=== PATIENT | female | born 1935 | race African-American/Black ===

== ENCOUNTER 2017-02-28 13:39 | Emergency (ER) | payer OTHER ==
[~2017-02-28] VITALS: Ht 152.4 cm; Wt 49.9 kg
[~2017-02-28 13:39] MED LIST: ACCUNEB0.63 MG/3; ALBUTEROL2.5 MG/0.1 INH; ALBUTEROL2.5 MG/31 INH; AMLODIPINE BESIL1 GM MC; AMLODIPINE BESY10 MG PO; ARANESP60 MCG/0.3 IJ; ASPIRIN EC81 M1 PO; ASPIRIN325; ASPIRIN325 PO; AUGMENTIN 500-1 EACH PO; AVELOX 400 MG400 MG PO; B COMPLEX-VITA1 EACH; BENAZEPRIL HCL10 MG PO; BENAZEPRIL HCL5 MG PO; BISACODYL SUPP10 MG RECTAL; CALCITRIOL0.5 MCG PO; CARVEDILOL12.5 MG PO; CARVEDILOL3.125 MG PO; CARVEDILOL6.25 MG PO; DILANTIN100 MG PO; ELOCON30 ML TP; EMLA; EPOGEN2000 UNIT/ INJECTION; FAMOTIDINE20 MG PO; FERRO-TIME325 MG PO; FUROSEMIDE 40 M40 M1 PO; HECTOROL2 MCG/1 ML IV; HYDRALAZINE 2525 MG PO; HYDRALAZINE 5050 M1 PO; IMDUR 30 MG TAB30 M1 PO; IMDUR 30 MG TAB30 MG PO; LABETALOL 100100 MG PO; LIQUITUSS200 MG/5 M PO; LORTAB 5 MG/5001 TA1 PO; LOTREL 10-20 M1 EACH PO; LOVASTAT20 PO; MACROBID 100 M100 M1 PO; NASONEX17 GM NASAL; NEPHRO-VITE RX1 TA1 PO; NEPHROCAPS SOFT1 CAP PO; NEXIUM 40 MG CA40 M1 PO; NEXIUM40 MG PO; NORVASC 2.5 MG2.5 M1 PO; NORVASC 2.5 MG2.5 MG PO; NORVASC 5 MG TAB5 MG PO; OMEPRAZOLE40 MG PO; PROAIR HFA8.5 GM INH; RENVELA800 MG PO; SENSIPAR 30 MG30 MG PO; TORSEMIDE20 MG PO; XALATAN2.5 ML OPHTHALMIC; ZEMPLAR2 MCG PO; ZOFRAN ODT4 MG PO
[2017-02-28 15:37] LABS: HEMATOCRIT 45.6 % (37.0-47.0); HEMOGLOBIN 15.1 gm/dL (12.0-15.0); MCH 34.1 pg (26.0-34.0); MCHC 33.2 g/dL (28.0-37.0); MCV 102.7 fL (80.0-100.0); RBC 4.45 mil/uL (4.20-5.00); RDW 15.4 % (10.5-14.5); WBC 13.6 thou/uL (4.0-11.0)
[2017-02-28 15:38] LABS: MANUAL DIFF YES
[2017-02-28 15:46] LABS: CALCIUM 9.2 mg/dL (8.5-10.1); CREATININE 7.4 mg/dL (0.6-1.0); POTASSIUM 5.7 mmol/L (3.5-5.1)
[2017-02-28 15:52] LABS: ABSOLUTE NEUTROPHILS 12.1 thou/uL (1.4-8.2); ALBUMIN 3.4 g/dL (3.4-5.0); ANISOCYTOSIS 2+; DIRECT BILIRUBIN 0.1 mg/dL (<0.1-0.3); MACROCYTES 1+; TOTAL BILIRUBIN 0.6 mg/dL (<0.1-1.0); TOTAL CELL COUNT 100; TOTAL PROTEIN 8.8 g/dL (6.4-8.2)
[2017-02-28 15:53] LABS: LARGE PLATELETS RARE; POLYCHROMASIA OCCASIONAL
[2017-02-28 15:59] LABS: PLATELET COUNT 220 thou/uL (150-400)
[2017-02-28] MEDS ORDERED: ZOFRAN ODT4 MG PO (17:19)
[2017-02-28] MEDS ORDERED: PHENERGAN 25 MG25 M1 PO (17:19)
[2017-02-28 17:22] LABS: APTT 30.8 Seconds (24.5-32.8); INR 1.2; PROTIME 11.8 Seconds (9.3-11.4)
== END 2017-02-28 18:00 | disposition home or self-care (01) ==
LOC: ER 13:39
PROVIDERS: Emergency Medicine; Physician Assistant
DX: R10.13 Epigastric pain (principal); D72.829 Elevated white blood cell count, unspecified; R11.2 Nausea with vomiting, unspecified; I11.0 Hypertensive heart disease with heart failure; I50.9 Heart failure, unspecified; E11.9 Type 2 diabetes mellitus without complications; G47.30 Sleep apnea, unspecified; Z86.73 Personal history of transient ischemic attack (TIA), and cerebral infarction without residual deficits; Z88.8 Allergy status to other drugs, medicaments and biological substances

== ENCOUNTER 2017-03-02 08:01 | Inpatient (IN) | payer OTHER ==
[~2017-03-02] VITALS: Ht 160 cm; Wt 50.8 kg
[2017-03-02] VITALS (38 sets, daily range): BP systolic 87–151; BP diastolic 45–119
--- NOTE | ~2017-03-02 | HC ---
[facility] [place] [address] CONSULTATION Name: ANNALISA COTTO Room #: 201-P ADM IN M.R.#: [id number] Admission: 03/02/17 Attend Phys: Perry Zavala DO Discharge: Date of : 34 Report #: [id number] THIS REPORT FOR: //name// CC: SOHAM physician/PCP Perry Zavala DATE OF SERVICE: 03/03/2017 HISTORY OF PRESENT ILLNESS: The patient is an 81-year-old -Dutch female who was admitted with left-sided weakness and speech difficulties. She was noted to have acute mental status changes. She was outside the timeframe for TPA. 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 Question of a late effect CVA. She was also diagnosed for a non-ST elevation NV. Recommendations are for medical management as per Cardiology. She has had a functional decline from her premorbid status with left-sided weakness and decreased functional abilities. We are seeing her in rehabilitation medicine consultation. PAST MEDICAL HISTORY: Includes end-stage renal disease, on hemodialysis. She had a prior right frontal infarct and has had a history of a seizure back in 2012. History of CHF, diabetes mellitus and obstructive sleep apnea. ALLERGIES: SOAP, IODINE AND ATENOLOL. SOCIAL HISTORY: House, 2 steps in, lives with her son, he works. She used a walker and was able to get around the house without difficulty. She could dress herself and take care of basic toileting. Her daughters helped her with labs. MEDICATIONS: Please see the full medication listing. HABITS: No history of alcohol or tobacco abuse. FAMILY HISTORY: Noncontributory. REVIEW OF SYSTEMS: Did not offer any current complaints of chest pain, shortness of breath or abdominal discomfort. She notes that she has right eye droop or ptosis from . Her prior CVA was back in 2011. No focal extremity pain complaints. PHYSICAL EXAMINATION: GENERAL: An 81-year-old -Dutch female in no obvious distress. She is seen in the intensive care unit. She is of small stature and is thin. VITAL SIGNS: Last recorded temperature is 37, pulse 85, respirations 15 and blood pressure 113/57. HEENT: She is alert. She does have the right eye ptosis. Nasal prong O2 at 2 liters. EOMs appeared to be full. No obvious visual field neglect to confrontation. She is noted to be right handed. Facies are symmetric. She can [facility] [address] [place] [address] CONSULTATION Name: ANNALISA COTTO Room #: 201-P [facility] IN .R.#: [id number] Admission: 03/02/17 Attend Phys: Perry Zavala DO Discharge: Date of : 34 Report #: [id number] express herself reasonably well. EXTREMITIES: She has functional range of motion of the right upper extremity with strength grade 4-/5. Left upper extremity strength is a grade 3+/5. Left lower extremity strength is a grade 3+/5. Right lower extremity strength is more of a grade 4-/5. She appeared inconsistent as far as testing simultaneous stimulation. DTRs were decreased in the left upper and left lower extremity and there was no clonus at either foot. She was supine to sit with contact guard assistance. She was able to take 4 steps contact guard handheld assistance. ASSESSMENT: An 81-year-old right-handed -Dutch female admitted with the following problem list: 1. Left hemiparesis. 2. Speech difficulties, which have improved. 3. Question late effect cerebrovascular accident. 4. Acute non-ST elevation myocardial infarction, being medically managed. 5. Acute mental status change, which appears to be improving. 6. Prior history of a right frontal pontine stroke. 7. End-stage renal disease, on hemodialysis. 8. History of congestive heart failure. 9. Diabetes mellitus. 10. Obstructive sleep apnea. PLAN: Therapies are working with her on functional mobility and on ADLs. She really did quite well for herself premorbidly. She certainly may warrant a short acute in-hospital inpatient rehabilitation stay as she further medically stabilizes and moves out of the ICU. We will be glad to follow along with you regarding her rehab therapy needs. By: 1214 [id number] Alberto Cutler MD /
--- NOTE | ~2017-03-02 | EKG ---
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 DOWNS : 1935 Requested By: Lissa Evans Order Number: [id number] MD: Rios Reyes Measurements Intervals [place] Rate: 83 P: 52 CT: 218 QRS: -8 QRSD: 108 T: 197 QT: 418 QTc: 492 Interpretive Statements Sinus rhythm Borderline prolonged CT interval Inferior infarct, age indeterminate Probable anterolateral infarct, acute Compared to ECG 03/02/2017 08:22:50 No significant changes Electronically Signed On 03-03-2017 7:51:49 CDT by Rios Reyes [email or web address] <ELECTRONICALLY SIGNED> By: Rios Reyes MD, FAC 03/03/17 0751 1002 1002 Rios Reyes MD, [facility] /EPI
--- NOTE | ~2017-03-02 | CATHLAB ---
[place] [address] [place] [address] INVASIVE PROCEDURE REPORT Name: ANNALISA COTTO Room #: 201-P ADM IN .R.#: [id number] Admission: 03/02/17 Attend Phys: Perry Zavala, Discharge: Date of : 34 Date of Service: 03/04/17 1337 Report #: [id number] THIS REPORT FOR: //name// APPROVED REPORT Patient Details Patient Status: ED Room #: The patient is a 81 year-old female Event Personnel Riaz Patel Correspondence Analyst, Gordon Gold RN, Chelo Rodriguez RN RN, Magi Perry Sandifer, David Monitor Procedures Performed Coronary Angiography Only [id number] CORANG Indication STEMI (>48 hrs to = 72 hrs), Chest pain Risk Factors Dysplipidemia , Cerebrovascular Disease, HypertensionRenal Failure, Dialysis Procedure Narrative The Right Groin^ was infiltrated with 1% Lidocaine subcutaneous anesthesia. A PINNACLE 6FR Sheath #[id number] sheath was inserted into the RFA^. Coronary angiography was performed using coronary diagnostic catheters. The right coronary system was accessed and visualized with a JR4 catheter. The left coronary system was accessed and visualized with a JL4 catheter. Closure device was deployed with a 6 Fr MYNXGRIP 6/7F #[id number]. The patient tolerated the procedure well and there were no complications associated with the procedure. There was no hematoma. Intraoperative Conscious Sedation Sedation start time: 12:20 Case end Time: 12:45 Fluoro Time: 8.00 minutes Dose: 706 mGy Contrast Type and Amount: Omnipaque 125 ml Diagnostic Cath Left Main Normal origin bifurcates left anterior descending left [facility] [place] [address] INVASIVE PROCEDURE REPORT Name: KIRTIANNALISA ERICA Room #: 201-P [facility] IN ..#: [id number] Admission: 03/02/17 Attend Phys: Perry Zavala, Discharge: Date of : 34 Date of Service: 03/04/17 1337 Report #: [id number] circumflex free of high-grade disease. There is some coronary calcifications noted. LAD Moderate caliber vessel which immediately bifurcates into a large diagonal and LAD. This juncture the LAD proper is completely occluded not filling via had a role or homocollaterals. There is no late filling identified. There is calcifications and possible thrombus noted at the origin of the LAD at the site of the first diagonal branch. The distal LAD is seen via collaterals and the apex is a small string. Circumflex Large-caliber vessel which gives rise to relatively small marginal branch free of high-grade disease. In courses in the anterior interventricular sulcus skin was a second moderate caliber marginal branch which has approximately 50% stenosis at its origin and is quite tortuous in its course. The circumflex continues on posteriorly where there is less than 50% irregularities noted giving rise to posterior wall marginal branch. His posterior wall marginal branch has very brisk and mature collaterals extending to the distal right coronary vessel and filling briskly the posterior descending artery and posterolateral wall branches. Right Coronary Small-caliber vessel which appears to be chronically occluded proximally. The distal RCA fills via collaterals from the left circumflex as stated above Hemodynamics The aortic pressure is 145/61 mmHg with a mean of 94 mmHg. PCI Technique Lesion A JL4 Guide Catheter was used to engage the LCA ostium. A Luge Wire (J) .014 X 182CM #[id number] Interventional Guidewire was used to cross the lesion. Conclusion 1. Coronary disease severe, two-vessel involving the proximal RCA which is well collateralized and mid LAD which appears to be not collateralized and totally occluded 2. Abnormal hemodynamics Recommendations Aggressive Medical Therapy In view of echocardiographic data and the presence of cardiomyopathy [address] [address] INVASIVE PROCEDURE REPORT Name: ANNALISA COTTO ERICA Room #: 201-P [facility] IN ..#: [id number] Admission: 03/02/17 Attend Phys: Perry Zavala, Discharge: Date of : 34 Date of Service: 03/04/17 1337 Report #: [id number] patient will be initiated on ischemic cardiomyopathic guidelines directed medical therapy as tolerated. <ELECTRONICALLY SIGNED> By: Riaz Patel MD 03/04/17 1337 1337 133 Riaz Patel MD /INF
--- NOTE | ~2017-03-02 | EKG ---
[address] [address] ELECTROCARDIOGRAM REPORT Name: ANNALISA COTTO Room #: 201-P ADM IN M.R.#: [id number] Admission: 03/02/17 Attend Phys: Perry Zavala DO Discharge: Date of : 34 Report #: [id number] THIS REPORT FOR: //name// [facility] Test Date: 2017-03-04 Test Time: 15:01:55 Pat Name: ANNALISA COTTO Department: Room: 201 P Gender: F Tdp Displays Analyst: MARIAN : 1935 Requested By: Perry Zavala Order Number: [id number] MD: Rios Reyes Measurements Intervals [place] Rate: 77 P: 30 MO: 207 QRS: 61 QRSD: 119 T: 216 QT: 438 QTc: 496 Interpretive Statements Sinus rhythm Probable inferior infarct, age indeterminate Anterolateral infarct, acute (LAD) Compared to ECG 03/02/2017 10:02:30 No significant changes Electronically Signed On 03-08-2017 9:10:26 CDT by Rios Reyes [email or web address] <ELECTRONICALLY SIGNED> By: Rios Reyes MD, [facility] 03/08/17 0910 1501 1501 Rios Reyes MD, [facility] /EPI
--- NOTE | ~2017-03-02 | HC ---
[facility] [place] [address] CONSULTATION Name: ANNALISA COTTO Room #: 201-P [facility] IN M.R.#: [id number] Admission: 03/02/17 Attend Phys: Perry Zavala DO Discharge: 03/08/17 Date of : 34 Report #: [id number] THIS REPORT FOR: //name// CC: SOHAM physician/PCP Perry Zavala NEPHROLOGY CONSULTATION CHIEF COMPLAINT: An 81-year-old patient well known to us, chronic dialysis patient, is admitted to the ICU after cardiac catheterization with acute NV, LAD occlusion status post unsuccessful angioplasty. HISTORY OF PRESENT ILLNESS: The patient is well known to us, longstanding diabetes and hypertension, longstanding end-stage renal disease and seizure disorder. She became ill 2 days ago, came to the emergency room with severe abdominal pain, nausea and vomiting, who was evaluated and sent home. Missed dialysis, yesterday became increasingly confused, came to the emergency room today, had a very high troponin, was felt to have an acute NV, was taken to the geotechnical laboratory technician and apparently had an LAD, which was unable to be opened up. Bedside echo showed severe apical septal inferior anterior wall hypokinesis with an LVEF of 30 to 35%, aortic regurgitation and pulmonary hypertension. PAST MEDICAL HISTORY: She has had previous CVA with left hemiparesis, which is chronic. She has end-stage renal disease, dialyses Tuesday, , and Saturdays; history of diastolic heart failure; severe hypertension and glucose intolerance. HOME MEDICATIONS: Listed as carvedilol 6.25 mg b.i.d., lovastatin 20 mg daily, Renvela 2 with meals t.i.d., aspirin 325 mg daily, Imdur 30 mg daily. FAMILY HISTORY: Noncontributory. SOCIAL HISTORY: No substantial cigarettes or alcohol. REVIEW OF SYSTEMS: GENERAL: The patient is seen in ICU, feeling a little better than she did before, currently not having any chest pain. EYES: Vision is fair at best. ENT: Hearing okay, swallows okay. Denies mouth ulcers. ENDOCRINE: Positive for the diabetes. RESPIRATORY: She is currently not short of breath, was earlier. CARDIAC: She had chest pains those are better. GASTROINTESTINAL: She had very severe nausea and vomiting that is better as well. GENITOURINARY: Makes any more, no dysuria. NEUROLOGIC: She has a chronic left-sided drooping and she has got the seizure disorder. [facility] [address] [place] [address] CONSULTATION Name: ANNALISA COTTO Room #: 201-P [facility]#: [id number] Admission: 03/02/17 Attend Phys: Perry Zavala DO Discharge: 03/08/17 Date of : 34 Report #: [id number] PHYSICAL EXAMINATION: GENERAL: This is a chronically ill-appearing woman, nasal cannula oxygen in place. SKIN: Unremarkable. SKELETAL: Well developed, well nourished. HEENT: Extraocular movements are full. Vision grossly intact. Mucous membranes moist. NECK: Supple. CHEST: Shows diminished breath sounds at the bases. HEART: Regular. ABDOMEN: Soft and nontender. EXTREMITIES: Show no edema. Peripheral pulses are diminished. LABORATORY DATA: Hemoglobin is 12.3, white count 15.9, platelets 166. Sodium 138, potassium 5, chloride 98, bicarbonate 26, BUN 78, creatinine 9.7. ASSESSMENT: 1. End-stage renal disease, on dialysis, initiated, tolerating well 1.5 L of ultrafiltration, 2 potassium bath. 2. Acute myocardial infarction, apparently had an unsuccessful cath in terms of opening up LAD lesion. 3. Status post previous cerebrovascular accident. 4. Seizure disorder. 5. Difficult hypertension. <ELECTRONICALLY SIGNED> By: Jun Marie MD 03/09/17 1121 1712 0040 Jun Marie MD /nt
--- NOTE | ~2017-03-02 | EKG ---
[place] [address] 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: Phillip CALDERON : 1935 Requested By: Nati Torres Order Number: [id number] MD: Rios Reyes Measurements Intervals [place] Rate: 72 P: 41 NV: 213 QRS: 48 QRSD: 124 T: 216 QT: 475 QTc: 520 Interpretive Statements Sinus rhythm Borderline prolonged NV interval Nonspecific intraventricular conduction delay Inferior and lateral ST elevation, consider injury Compared to ECG 03/02/2017 10:02:30 ST segment elevation is persistent Electronically Signed On 03-08-2017 13:03:05 CDT by Rios Reyes [email or web address] <ELECTRONICALLY SIGNED> By: Rios Reyes MD, [facility] 03/08/17 1303 0907 0907 Rios Reyes MD, [facility] /EPI
--- NOTE | ~2017-03-02 | 2DMMODE ---
[facility] [address] [place] [address] 2 D/M-MODE ECHOCARDIOGRAM Name: ANNALISA COTTO Room #: 170-9 ADM IN .R.#: [id number] Admission: 03/02/17 Attend Phys: Perry Zavala, Discharge: Date of : 34 Date of Service: 03/02/17 1154 Report #: [id number] THIS REPORT FOR: //name// APPROVED REPORT Study performed: 03/02/2017 10:49:01 EXAM: Comprehensive 2D, Doppler, and color-flow Echocardiogram Patient Location: ER Room #: 9 Status: stat BSA: 1.54 HR: 82 bpm BP: 136/59 mmHg Rhythm: NSR Other Information Study Quality: Good Indications Elevated Troponin Chest Pain 2D Dimensions RVDd: 32.59 mm LVEF(%): 46.67 (>50%) IVSd: 11.08 (7-11mm) LVOT Diam: 15.88 (18-24mm) LVDd: 30.96 mm PWd: 8.96 (7-11mm) Ascending Ao: 22.69 (22-36mm) LVDs: 24.00 (25-40mm) Aortic Root: 27.94 mm IVC: 29.00 mm Ferreira's LVEF: 46.67 % Volumes Left Atrial Volume (Systole) Single Plane 4CH: 52.90 mL Single Plane 2CH: 53.57 mL LA ESV Index: 38.00 mL/m2 Aortic Valve AoV Peak Jorge L.: 1.46 m/s AO Peak Gr.: 8.53 mmHg LVOT Max P.10 mmHg LVOT Max V: 0.72 m/s ELIER Vmax: 0.98 cm2 AI Vmax: 3.74 m/s AI [place]: 1.92 m/s2 AI PHT: 565.48 ms [facility] [place] [address] 2 D/M-MODE ECHOCARDIOGRAM Name: ANNALISA COTTO Room #: 170-9 [facility] IN ..#: [id number] Admission: 03/02/17 Attend Phys: Perry Zavala, Discharge: Date of : 34 Date of Service: 03/02/17 1154 Report #: [id number] Mitral Valve E/A Ratio: 0.7 MV Decel. Time: 197.64 ms MV E Max Jorge L.: 1.38 m/s MV A Jorge L.: 1.86 m/s MV PHT: 57.32 ms IVRT: 119.95 ms Pulmonary Valve PV Peak Jorge L.: 0.76 m/s PV Peak Gr.: 2.32 mmHg Tricuspid Valve TR Peak Jorge L.: 3.36 m/s RAP Estimate: 15.00 mmHg TR Peak Gr.: 45.27 mmHg PA Pressure: 60.00 mmHg Left Ventricle The left ventricle is normal size. There is severe hypokinesis in the apical wall. There is severe hypokinesis in the inferior wall. There is severe hypokinesis in the septal wall. There is severe hypokinesis in the apical lateral wall. There is severe hypokinesis in the anterior and septal wall. There is normal left ventricular wall thickness. Left ventricular ejection fraction is moderate to severely decreased. LVEF is 30-35%. Grade II - pseudonormal filling dynamics. Right Ventricle The right ventricle is normal size. The right ventricular systolic function is normal. Atria Left atrium is dilated. Right atrium is dilated. Aortic Valve Aortic valve is calcified. Mild aortic regurgitation. There is no aortic valvular stenosis. Mitral Valve The mitral valve is normal in structure. There is mitral annular calcification. Mild mitral regurgitation. No evidence of mitral valve stenosis. Tricuspid Valve The tricuspid valve is normal in structure. There is mild to moderate tricuspid regurgitation. The right atrial pressure is estimated at 15 [facility] [address] [place] [address] 2 D/M-MODE ECHOCARDIOGRAM Name: ANNALISA COTTO Room #: 170-9 [facility] IN [facility]#: [id number] Admission: 03/02/17 Attend Phys: Perry Zavala, Discharge: Date of : 34 Date of Service: 03/02/17 1154 Report #: [id number] mmHg. There is moderate pulmonary hypertension. Pulmonic Valve The pulmonary valve is normal in structure. Trace pulmonic regurgitation. Great Vessels The aortic root is normal in size. The ascending aorta is normal in size. The inferior vena cava is dilated with no inspiratory collapse. Pericardium There is no pericardial effusion. <Conclusion> The left ventricle is normal size. There is severe hypokinesis in the apical wall. There is severe hypokinesis in the inferior wall. There is severe hypokinesis in the septal wall. There is severe hypokinesis in the apical lateral wall. Left ventricular ejection fraction is moderate to severely decreased. LVEF is 30-35%. Left atrium is dilated. Right atrium is dilated. Aortic valve is calcified. Mild aortic regurgitation. The mitral valve is normal in structure. There is mitral annular calcification. Mild mitral regurgitation. The tricuspid valve is normal in structure. There is mild to moderate tricuspid regurgitation. The right atrial pressure is estimated at 15 mmHg. There is moderate pulmonary hypertension. The pulmonary valve is normal in structure. Trace pulmonic regurgitation. The inferior vena cava is dilated with no inspiratory collapse. There is no pericardial effusion. <ELECTRONICALLY SIGNED> By: Riaz Patel MD 03/02/17 1154 1154 1154 Riaz Patel MD /INF
--- NOTE | ~2017-03-02 | EKG ---
[place] [address] [address] [address] ELECTROCARDIOGRAM REPORT Name: ANNALISA COTTO [id number] Admission: 03/02/17 Attend Phys: Discharge: Date of : 34 Report #: [id number] THIS REPORT FOR: //name// [facility] ED Test Date: 2017-03-02 Test Time: 08:22:50 Pat Name: ANNALISA COTTO Department: Room: Gender: F Case Management Rn: : 1935 Requested By: Lissa Evans Order Number: [id number] MD: Rios Reyes Measurements Intervals [place] Rate: 83 P: 40 WV: 219 QRS: -14 QRSD: 106 T: 195 QT: 421 QTc: 495 Interpretive Statements Sinus rhythm Borderline prolonged [place] interval Inferior infarct, age indeterminate Anterolateral infarct, acute (LAD) Baseline wander in lead(s) V3 Compared to ECG 11/20/2014 15:38:19 Myocardial infarct finding now present Electronically Signed On 03-02-2017 8:49:20 CDT by Rios Reyes [email or web address] <ELECTRONICALLY SIGNED> By: Rios Reyes MD, [facility] 03/02/17 0849 1 1 Rios Reyes MD, [facility] /EPI
--- NOTE | ~2017-03-02 | HC ---
[facility] [place] [address] CONSULTATION Name: ANNALISA COTTO Room #: 201-P ADM IN M.R.#: [id number] Admission: 03/02/17 Attend Phys: Perry Zavala DO Discharge: Date of : 33 Report #: [id number] THIS REPORT FOR: //name// CC: [facility] physician/PCP Perry Zavala DATE OF SERVICE: 03/06/2017 REQUESTING PHYSICIAN: Dr. Perry Zavala. REASON FOR CONSULTATION: Palliative care. CHIEF COMPLAINT: Ischemic heart disease. HISTORY OF PRESENT ILLNESS: The patient is an 81-year-old female initially admitted to [facility] on March 02. She was brought by his family with reported weakness including altered mental status and also worsening dyspnea. Additionally, the patient had had left-sided weakness. She had a previous history of right frontal stroke, which was again rediscovered on CT scan, although this appeared to be old. The patient was then subsequently discovered to have a non-STEMI. This was likely secondary to a large LAD lesion. Unfortunately, intervention is not possible at this time. The patient has a longstanding history of multiple medical problems including end-stage renal disease. She has been on dialysis since 2011. The patient reports today that she is in no significant pain. She does report shortness of breath with ambulation. She denies any other complaints at this time. The patient's son with whom she lives is present for interview as well as the daughter. PAST MEDICAL HISTORY: Significant for end-stage renal disease, history of CVA right frontal, diabetes mellitus, obstructive sleep apnea, anemia of chronic kidney disease, hyperlipidemia, seizure disorder. SURGICAL HISTORY: Right subclavian dialysis port. SOCIAL HISTORY: Lives with son. Has two additional daughters. No alcohol, tobacco or illicit drug use. ALLERGIES: ATENOLOL, SOAP, BETADINE-RELATED AND IODINE. MEDICATIONS: At home, the patient was on Coreg 12.5 b.i.d., ____ 6.25 mg b.i.d., lovastatin 20 mg at bedtime, Renvela 2400 mg t.i.d. a.c., aspirin 325 mg daily, Imdur 30 mg daily, Dilantin 200 mg b.i.d., Sensipar 30 mg daily, omeprazole 20 mg daily, amlodipine/benazepril 10/20 one p.o. daily, and albuterol p.r.n. REVIEW OF SYSTEMS: [address] [address] CONSULTATION Name: ANNALISA COTTO Room #: 201-P [facility].#: [id number] Admission: 03/02/17 Attend Phys: Perry Zavala DO Discharge: Date of : 33 Report #: [id number] GENERAL: The patient denies any significant weight changes. She does report generalized fatigue in addition to generalized weakness. HEENT: Denies visual changes. CARDIOVASCULAR: Denies current chest pain. Does report shortness of breath with any exertion. Denies any kind of diaphoresis at this time. RESPIRATORY: Again shortness of breath with exertion. She denies cough. She denies wheezing. ABDOMEN: Denies nausea, vomiting, constipation or diarrhea. EXTREMITIES: Does have some mild edema, but otherwise no noted abnormalities. PHYSICAL EXAMINATION: VITAL SIGNS: Temperature 36.6, pulse 71, respirations 16, blood pressure 112/49, pulse ox 97% on room air. GENERAL: The patient is alert. She appears to be oriented to self. It is difficult to assess for other orientation. There does appear to be attention loss and also memory-related possible decline. CARDIOVASCULAR: Currently, regular rate and rhythm without murmur. EXTREMITIES: Mild edema noted in lower extremities. RESPIRATORY: Lungs are clear to auscultation bilaterally. No wheezes, rales, rhonchi. ABDOMEN: Soft, nontender to palpation, ____ positive bowel sounds noted. NEUROLOGIC: Again, oriented to self. I believe the patient to have memory deficits, these are likely underlying but unknown to what extent given her attention level changes. LABORATORY DATA: These include today's labs, hemoglobin 11.6, white blood cell 11.2. MCV was elevated at 101.4. Sodium 136, potassium 5.0, creatinine 6.5. ASSESSMENT AND PLAN: The patient is an 81-year-old female with following medical concerns. 1. Ischemic cardiomyopathy. At this time, the patient is not a good candidate for intervention, meaning bypass surgery. I have discussed this extensively with the patient and family today. I spent approximately 46 minutes today on advanced care planning. The patient is amenable to changes in code status to DNR after discussion extensively of both CPR and intubation and outside the hospital DNR form signed today as well. In addition, we discussed possibility of discharge to SNF versus home health versus hospice. They are considering home health or hospice, biggest hold up is on her continue dialysis or not. They will have a decision for us in the morning. With regards to this, the patient does not appear to have capacity for her own medical decision making at this time and family appears to be together under decision making. 2. End-stage liver disease. Again, dialysis is the biggest challenge for the decision making at this time, they are considering this today. 3. Urinary tract infection. Management provided with primary team. 4. History of cerebrovascular accident. Management per primary team. Does affect her ability for recovery. Physical and occupational therapy have been [facility] [address] [place] [address] CONSULTATION Name: ANNALISA COTTO ERICA Room #: 201-P ADM IN M.R.#: [id number] Admission: 03/02/17 Attend Phys: Perry Zavala DO Discharge: Date of : 33 Report #: [id number] ordered for her. I will continue to follow this patient and will update on a further plan in the future. By: [id number] Kumar Ervin DO /nt
[~2017-03-02 08:01] MED LIST changes: +PHENERGAN 25 MG25 M1 PO
[2017-03-02 09:22] LABS: HEMATOCRIT 36.8 % (37.0-47.0); MCH 34.3 pg (26.0-34.0); MCHC 33.4 g/dL (28.0-37.0); MCV 102.5 fL (80.0-100.0); RBC 3.59 mil/uL (4.20-5.00); RDW 15.6 % (10.5-14.5); WBC 15.9 thou/uL (4.0-11.0)
[2017-03-02 09:23] LABS: HEMOGLOBIN 12.3 gm/dL (12.0-15.0)
[2017-03-02 09:24] LABS: MANUAL DIFF YES
[2017-03-02 09:30] LABS: URINE BILIRUBIN NEGATIVE (Negative); URINE BLOOD 3+ (Negative); URINE GLUCOSE-RANDOM* NEGATIVE (Negative); URINE KETONES NEGATIVE (Negative); URINE LEUKOCYTES-REFLEX 2+ (Negative); URINE PROTEIN (DIPSTICK) 3+ (Negative); URINE UROBILINOGEN 0.2 E.U./dl (0.2-1.0)
[2017-03-02 09:30] LABS: CALCIUM 8.4 mg/dL (8.5-10.1)
[2017-03-02 09:31] LABS: CREATININE 9.7 mg/dL (0.6-1.0)
[2017-03-02 09:31] LABS: URINE COLOR DARK YELLOW
[2017-03-02 09:36] LABS: AMORPHOUS URATES Many /LPF (None Seen); CASTS None Seen /LPF (None Seen); SQUAMOUS >10 Many /LPF (0-3); URINE RBC 3-10 Few /HPF (0-2); URINE WBC-REFLEX >25 Many /HPF (0-5)
[2017-03-02 09:36] LABS: APTT 34.9 Seconds (24.5-32.8); INR 1.3; PROTIME 12.9 Seconds (9.3-11.4)
[2017-03-02 09:38] LABS: ALBUMIN 2.6 g/dL (3.4-5.0); DIRECT BILIRUBIN 0.3 mg/dL (<0.1-0.3); TOTAL BILIRUBIN 0.6 mg/dL (<0.1-1.0); TOTAL PROTEIN 7.2 g/dL (6.4-8.2)
[2017-03-02 09:49] LABS: ABSOLUTE NEUTROPHILS 13.7 thou/uL (1.4-8.2); PLATELET COUNT 166 thou/uL (150-400); PLATELET ESTIMATE NORMAL; TOTAL CELL COUNT 100
[2017-03-03] VITALS (32 sets, daily range): BP systolic 72–132; BP diastolic 33–77
[2017-03-03 05:10] LABS: ALBUMIN 2.5 g/dL (3.4-5.0); PHOSPHORUS 5.5 mg/dL (2.5-4.9); POTASSIUM 4.3 mmol/L (3.5-5.1)
[2017-03-03 05:11] LABS: CREATININE 5.5 mg/dL (0.6-1.0)
[2017-03-03 16:08] LABS: HEP B SURFACE Ab(ANTI-HBS Non Reactive (())
[2017-03-04 03:17] VITALS: BP 108/57
[2017-03-04 04:29] LABS: ALBUMIN 2.2 g/dL (3.4-5.0); CALCIUM 7.9 mg/dL (8.5-10.1); POTASSIUM 4.4 mmol/L (3.5-5.1)
[2017-03-04 04:33] LABS: CREATININE 6.9 mg/dL (0.6-1.0)
[2017-03-04] MEDS ORDERED: ALTACE5 MG PO (11:20)
[2017-03-04] MEDS ORDERED: DILANTIN100 MG PO (11:21)
[2017-03-04] MEDS ORDERED: NEPHROCAPS SOFT1 CAP PO (11:21)
[2017-03-04] MEDS ORDERED: ADULT LOW DOSE81 MG PO (11:21)
[2017-03-04 15:55] VITALS: BP 84/34
[2017-03-04 19:11] VITALS: BP 102/40
[2017-03-04 23:26] VITALS: BP 114/60
[2017-03-05 04:05] VITALS: BP 95/45
[2017-03-05 08:18] VITALS: BP 111/54
[2017-03-05 12:11] VITALS: BP 114/76
[2017-03-05 15:35] VITALS: BP 133/49
[2017-03-05 19:24] VITALS: BP 120/34
[2017-03-06 03:56] LABS: CALCIUM 8.5 mg/dL (8.5-10.1); CREATININE 6.5 mg/dL (0.6-1.0)
[2017-03-06 04:07] LABS: HEMATOCRIT 35.1 % (37.0-47.0); HEMOGLOBIN 11.6 gm/dL (12.0-15.0); MCH 33.6 pg (26.0-34.0); MCHC 33.1 g/dL (28.0-37.0); MCV 101.4 fL (80.0-100.0); PLATELET COUNT 191 thou/uL (150-400); RBC 3.46 mil/uL (4.20-5.00); RDW 15.5 % (10.5-14.5); WBC 11.2 thou/uL (4.0-11.0)
[2017-03-06 04:12] LABS: MANUAL DIFF YES
[2017-03-06 04:32] VITALS: BP 96/49
[2017-03-06 05:05] LABS: ABSOLUTE NEUTROPHILS 8.6 thou/uL (1.4-8.2); LARGE PLATELETS OCCASIONAL; TOTAL CELL COUNT 100
[2017-03-06 07:24] VITALS: BP 118/56
[2017-03-06 11:30] VITALS: BP 119/53
[2017-03-06 19:23] VITALS: BP 112/49
[2017-03-07 03:16] VITALS: BP 131/53
[2017-03-07 07:41] VITALS: BP 116/81
[2017-03-07 12:10] VITALS: BP 108/56
[2017-03-07 16:22] VITALS: BP 116/54
[2017-03-07 19:29] VITALS: BP 94/43
[2017-03-08 03:30] VITALS: BP 111/51
[2017-03-08 07:21] VITALS: BP 125/58
== END 2017-03-08 13:27 | DRG 280 ==
LOC: ER 08:01 → EROBS 11:14 → ICU 11:14 → 2N 03-03 17:27
PROVIDERS: Emergency Medicine; Family Medicine; Internal Medicine Nephrology
PROC: 5A1D60Z (ICD-10-PCS; principal; 2017-03-02)
PROC: B2111ZZ Fluoroscopy of Multiple Coronary Arteries using Low Osmolar Contrast (ICD-10-PCS; 2017-03-04)
PROC: 4A023N7 Measurement of Cardiac Sampling and Pressure, Left Heart, Percutaneous Approach (ICD-10-PCS; 2017-03-04)
DX: I21.4 Non-ST elevation (NSTEMI) myocardial infarction (principal); N18.6 End stage renal disease; N39.0 Urinary tract infection, site not specified; I13.2 Hypertensive heart and chronic kidney disease with heart failure and with stage 5 chronic kidney disease, or end stage renal disease; I50.40 Unspecified combined systolic (congestive) and diastolic (congestive) heart failure; E11.22 Type 2 diabetes mellitus with diabetic chronic kidney disease; H02.401 Unspecified ptosis of right eyelid; G40.909 Epilepsy, unspecified, not intractable, without status epilepticus; G47.33 Obstructive sleep apnea (adult) (pediatric); E78.5 Hyperlipidemia, unspecified; I25.5 Ischemic cardiomyopathy; I25.10 Atherosclerotic heart disease of native coronary artery without angina pectoris; F03.90 Unspecified dementia, unspecified severity, without behavioral disturbance, psychotic disturbance, mood disturbance, and anxiety; Z86.73 Personal history of transient ischemic attack (TIA), and cerebral infarction without residual deficits; Z88.8 Allergy status to other drugs, medicaments and biological substances; Z91.048 Other nonmedicinal substance allergy status; Z99.2 Dependence on renal dialysis; Z82.49 Family history of ischemic heart disease and other diseases of the circulatory system
CPT/HCPCS: 10078; 10081; 32100

== ENCOUNTER 2017-03-15 13:33 | Emergency (ER) | payer OTHER ==
[~2017-03-15] VITALS: Ht 162.6 cm; Wt 59.0 kg
[~2017-03-15 13:33] MED LIST changes: +ADULT LOW DOSE81 MG PO; +ALTACE5 MG PO
[2017-03-15 16:07] LABS: POC CA IONIZED 5.8 mg/dL (4.5-5.3); POC CREATININE 3.1 mg/dL (0.6-1.3); POC HEMOGLOBIN 8.5 g/dL (12.0-15.0); POC POTASSIUM 6.1 mmol/L (3.5-5.1)
== END 2017-03-15 20:26 ==
LOC: ER 13:33
PROVIDERS: Emergency Medicine
DX: I46.9 Cardiac arrest, cause unspecified (principal); I13.2 Hypertensive heart and chronic kidney disease with heart failure and with stage 5 chronic kidney disease, or end stage renal disease; E11.22 Type 2 diabetes mellitus with diabetic chronic kidney disease; N18.6 End stage renal disease; I50.9 Heart failure, unspecified; Z99.2 Dependence on renal dialysis; G40.909 Epilepsy, unspecified, not intractable, without status epilepticus; Z86.73 Personal history of transient ischemic attack (TIA), and cerebral infarction without residual deficits; K21.9 Gastro-esophageal reflux disease without esophagitis; Z79.82 Long term (current) use of aspirin; Z88.8 Allergy status to other drugs, medicaments and biological substances